=== PATIENT | male | born 1950 | race Caucasian/White ===

== ENCOUNTER → 2018-04-20 | Outpatient (CLI) | payer OTHER, BC ==
[~2018-04-20] VITALS: Ht 180.3 cm; Wt 83.9 kg
[~2018-04-20] MED LIST: ASPIR 8181 M1 PO; COLESTID1 GM PO; FOLIC ACID 1 MG1 MG PO; HYDROCHLOROTHIA25 M1 PO; NITROGLYCERIN0.4 MG SUBLING; PROZAC20 MG PO; SYNTHROID112 MC1 PO; WELLBUTRIN XL300 MG PO
--- NOTE | ~2018-04-20 | P ---
[facility] [place] [address] PROCEDURE REPORT Name: ROSENTHALWILLOW Hannah Room #: REG [facility]#: [id number] Admission: 04/20/18 Attend Phys: Bernardo Elder MD Discharge: Date of : 50 Report #: [id number] THIS REPORT FOR: //name// CC: Bernardo Hagen MD OUTPATIENT UPPER ENDOSCOPY BRIEF HISTORY: The patient is a 68-year-old male with a recent history of abdominal pain. He has epigastric burning pain. He does use ibuprofen on a nearly daily basis and also 81 mg of aspirin daily. PREOPERATIVE DIAGNOSIS: Epigastric pain and nonsteroidals. POSTOPERATIVE DIAGNOSES: 1. Multiple punctate duodenal ulcers. 2. Small hiatus hernia. 3. Diffuse gastritis. MEDICATIONS: Deep sedation with propofol per anesthesia. SPECIMEN: Biopsies of gastritis. ESTIMATED BLOOD LOSS: 3 mL. PROCEDURE: EGD with biopsy. FINDINGS: Prior to propofol sedation, the procedure of upper endoscopy discussed with the patient as well as potential risks and its complications. He indicates he understands and desires to proceed. DESCRIPTION OF PROCEDURE: With the patient in the left lateral decubitus position, the Olympus video endoscope was inserted in the cervical esophagus under direct vision without difficulty. Examination of this organ through its entire length revealed normal esophageal mucosa down to the squamocolumnar junction. Squamocolumnar junction was inspected and noted to be unremarkable. No ulcers, erosions, strictures or masses were seen. There was no endoscopic evidence of esophagitis. A small hiatus hernia was seen. It was no more than 2 cm. The scope was advanced in the stomach, which was examined on end view as well as retroflexed views. There was a small amount of bile in the stomach. No ulcers were seen. There was a diffuse erythematous gastritis in the antrum. Upon retroflexion, no mass lesions were seen. The pylorus, duodenal bulb and postbulbar sweep were all inspected and noted to be unremarkable. At that point, the scope was slowly withdrawn and careful circumferential views confirmed the above findings. The patient tolerated the procedure well. [facility] [address] [place] [address] PROCEDURE REPORT Name: WILLOW ROSENTHAL [id number] Admission: 04/20/18 Attend Phys: Bernardo Elder MD Discharge: Date of : 50 Report #: [id number] CONDITION OF THE PATIENT UPON DISCHARGE: Following the procedure, the patient drowsy and prepared for colonoscopy. INSTRUCTIONS TO THE PATIENT AND FAMILY AT THE TIME OF DISCHARGE: The patient clearly has mucosal injury in his duodenum. This may be related to nonsteroidals. I do not see evidence of esophagitis. I advised him to try to limit his nonsteroidals. Potentially try acetaminophen. We will place him on omeprazole 40 mg daily for 6 weeks and then reduce to lowest dose as needed to control the symptoms. At this point in time, we will proceed with colonoscopy. <ELECTRONICALLY SIGNED> By: Bernardo Elder MD 04/21/18 1122 [id number] Bernardo Elder MD /nt
--- NOTE | ~2018-04-20 | PATH ---
[facility] [place] [address] PATHOLOGY RPT PROCEDURE Name: WILLOW ARAIZA Hannah Room #: REG [facility].#: [id number] Admission: 04/20/18 Date of : 50 Discharge: Report #: [id number] Path Case #: [id number] [facility] Accession Number: [id number] . 01 Material submitted: . PART A: BX OF GASTRISTIS, R/O H. PYLORI PART B: POLYP AT CECUM PART C: RANDOM COLON BX R/O MICROSCOPIC COLITIS PART D: POLYP AT 60CM PART E: BX OF THICKENED FOLD AT 30CM . 01 Clinical history: . Pre-OP DX: Hx polyps, reflux Post-OP DX: Gastritis, small duodenal ulcers, hiatal hernia . 02 Diagnosis: A. "BX of gastritis R/O H. pylori", biopsy: - Gastric mucosa with mild reactive changes and minimal chronic inflammation. - Negative H. pylori immunohistochemical stain (Block A1); control reacted appropriately. . B. "Polyp at cecum", biopsy: - Tubular adenoma; no high grade dysplasia. . C. "Random colon BX R/O microscopic colitis", biopsy: - Colonic mucosa with mild reactive changes; no evidence of active, lymphocytic or collagenous colitis. . D. "Polyp at 60 cm", biopsy: - Tubular adenoma; no high grade dysplasia. . E. "BX of thickened fold at 30 cm", biopsy: - Colonic mucosa with mild reactive/hyperplastic changes; no dysplasia seen. . (CLW:vjm;04/21/2018) AGA/04/21/2018 . 02 Electronically signed: . Lin Harris MD, Pathologist NPI- [id number] . 01 Gross description: . A. Received in formalin labeled "Willow Araiza, BX of gastritis, rule out H. pylori," are multiple segments of aguilar soft tissue measuring 1.7 x 0.5 x 0.2 cm in aggregate dimensions. The specimen [place] [address] PATHOLOGY RPT PROCEDURE Name: WILLOW ARAIZA Room #: REG [facility].#: [id number] Admission: 04/20/18 Date of : 50 Discharge: Report #: [id number] Path Case #: [id number] submitted in cassette A1. . B. Received in formalin labeled "Willow Araiza, polyp at cecum," is a single segment of aguilar soft tissue measuring 0.8 cm in maximum dimension. The specimen is entirely submitted in cassette B1. . C. Received in formalin labeled "Willow Araiza, random colon BX, rule out microscopic colitis," are multiple segments of aguilar soft tissue measuring 1.6 x 0.5 x 0.2 cm in aggregate dimensions. The specimen is filtered and entirely submitted in cassette C1. . D. Received in formalin labeled "Willow Araiza, polyp at 60 cm," is a single segment of aguilar soft tissue measuring 0.3 cm in maximum dimension. The specimen is entirely submitted in cassette D1. . E. Received in formalin labeled "Willow Araiza, BX of thickened fold at 30 cm," are multiple segments of aguilar soft tissue measuring 1.6 x 0.4 x 0.1 cm in aggregate dimensions. The specimen is filtered and entirely submitted in cassette E1. (TSD; 04/20/2018) TOB/TOB . 02 Pathologist provided ICD-10: K29.50, D12.6, Z86.010 . 02 CPT . 514329, 298785, 367891, 992480, 281442, [id number] Specimen Comment: A courtesy copy of this report has been sent to Specimen Comment: [phone], . Specimen Comment: Report sent to / DR GURROLA Performed at: [address], [place] [id number] MD Carlos Ruiz MD Phone: [phone] Performed at: [address] [id number] MD Terese Telles MD Phone: [phone]
--- NOTE | ~2018-04-20 | P ---
[facility] [place] [address] PROCEDURE REPORT Name: ROSENTHALWILLOW Hannah Room #: REG [facility]#: [id number] Admission: 04/20/18 Attend Phys: Bernardo Elder MD Discharge: Date of : 50 Report #: [id number] THIS REPORT FOR: //name// CC: Bernardo Hagen MD OUTPATIENT COLONOSCOPY REPORT BRIEF HISTORY: The patient is a 68-year-old male with a lifetime history of 25 adenomas for high-risk screening colonoscopy. He also has a history of microscopic colitis, for which he takes colestipol. PREOPERATIVE DIAGNOSES: History of colon polyps and chronic diarrhea. POSTOPERATIVE DIAGNOSES: 1. Colon polyps. 2. Thickened fold, 30 cm, uncertain etiology. 3. Moderate diverticulosis coli. MEDICATIONS: Deep sedation with propofol per anesthesia. SPECIMENS: 1. Cecal polyps. 2. Random biopsies: Rule out microscopic colitis. 3. Polyp at 60 cm. 4. Biopsy of thickened fold at 30 cm. ESTIMATED BLOOD LOSS: 3 mL. PROCEDURE: Colonoscopy to cecum and terminal ileum with biopsy. FINDINGS: Prior to propofol sedation, the procedure of colonoscopy discussed with the patient as well as potential risks and its complications. He indicates he understands and desires to proceed. DESCRIPTION OF PROCEDURE: With the patient in the left lateral decubitus position, digital examination was completed, which revealed no abnormalities. Subsequently, the Olympus video colonoscope was introduced in the rectum, advanced under direct vision to the cecum. Done with minimal difficulty. The cecum was identified by the ileocecal valve and the appendiceal orifice. I was able to visualize the distal segment of the terminal ileum, which was inspected and noted to be unremarkable. At that point, the scope was slowly withdrawn and careful circumferential views obtained, including retroflexing the scope in the ascending colon. As we withdrew the scope, the prep was good. The mucosa was within normal limits. Normal vascular pattern and normal light reflex. A diminutive polyp was seen and removed by biopsy from the cecum. As we withdrew [facility] [address] [place] [address] PROCEDURE REPORT Name: WILLOW ROSENTHAL Room #: REG [facility]#: [id number] Admission: 04/20/18 Attend Phys: Bernardo Elder MD Discharge: Date of : 50 Report #: [id number] the scope, the prep was good. The mucosa was within normal limits, normal vascular pattern and normal light reflex. He does have a history of microscopic colitis. The mucosa throughout the entire colon was intact and unremarkable. Obvious inflammatory changes were not seen. However, due to his history, multiple biopsies were obtained to evaluate for microscopic colitis. No additional abnormalities were noted until the descending colon was reached and at 60 cm, a diminutive polyp was seen and removed by biopsy. In the sigmoid, there was moderately severe sigmoid diverticular disease, without endoscopic evidence of diverticulitis. The scope was withdrawn in the rectum. Upon retroflexion, no abnormalities were seen. Scope was withdrawn. The patient tolerated the procedure well. In addition, at 30 cm, there was a thickened, somewhat redundant fold. It was soft and pliable. It may be a lipoma, although it did not have the typical yellowish appearance. Also, in view of his history of multiple colon polyps in the past, it could be an old large polypectomy stalk. Multiple biopsies were obtained. Overall, it has a completely benign appearance. CONDITION OF THE PATIENT UPON DISCHARGE: Following the procedure, the patient drowsy, arousable and conversant and will be discharged home when fully ambulatory. INSTRUCTIONS TO THE PATIENT AND FAMILY AT THE TIME OF DISCHARGE: Two diminutive polyps were seen. He has a lifetime adenoma count of 25. We have discussed genetic counseling in the past, but it was never completed. We will produce the patient with additional information on genetic counseling, potentially genetic testing. At this point in time, due to his high colon polyp count, I suggest to return in 2 years for his next high-risk screening colonoscopy. We will follow up on biopsies with regard to the thickened fold as well as the microscopic colitis. Last colonoscopy was 3 years ago. Withdrawal time from the cecum was 16 minutes 40 seconds. <ELECTRONICALLY SIGNED> By: Bernardo Elder MD 04/21/18 1122 [id number] [id number] Bernardo Elder MD /nt
== END | disposition home or self-care (01) ==
LOC: GI 07:34
DX: D12.4 Benign neoplasm of descending colon (principal); D12.0 Benign neoplasm of cecum; K63.89 Other specified diseases of intestine; K57.30 Diverticulosis of large intestine without perforation or abscess without bleeding; K44.9 Diaphragmatic hernia without obstruction or gangrene; K29.50 Unspecified chronic gastritis without bleeding; I10 Essential (primary) hypertension; E03.9 Hypothyroidism, unspecified; F32.9 Major depressive disorder, single episode, unspecified; F41.9 Anxiety disorder, unspecified; G47.33 Obstructive sleep apnea (adult) (pediatric); Z95.1 Presence of aortocoronary bypass graft; Z86.010 Personal history of colon polyps; Z79.82 Long term (current) use of aspirin; Z98.890 Other specified postprocedural states; Z79.899 Other long term (current) drug therapy
CPT/HCPCS: 62110; 62900